=== PATIENT | female | born 1940 | race Caucasian/White ===

== ENCOUNTER 2017-08-19 09:25 | Day surgery (SDC) | payer MEDICARE, BC ==
[~2017-08-19 09:25] MED LIST: LIDOCAINE HCL 1% MPF SOL ONE; PROPOFOL 500 MG/50 ML EMU IV ONE
[2017-08-19] MEDS ORDERED: LIDOCAINE HCL 2% MPF SOL ONE (10:27)
[2017-08-19] MEDS ORDERED: MIDAZOLAM 2 MG/2 ML SOL ONE (10:54)
[2017-08-19] MEDS ORDERED: FENTANYL 100MCG/2ML SOL ONE (10:55)
[2017-08-19] MEDS: BUPIVACAINE HCL 0.5% MPF 10 ML SOL ONE ×2 (11:12→11:15)
[2017-08-19] MEDS ORDERED: BETAMETHASONE 6 MG/ML SUS IM ONE (11:12)
[2017-08-19 12:06] VITALS: RESP 20
[2017-08-19 12:27] VITALS: BP 146/70; PULSE 56; TEMP 975; O2SAT 93
== END 2017-08-19 13:28 | disposition home or self-care (01) | DRG 558 ==
LOC: SURG 09:25
PROVIDERS: ATTEND Orthopaedic Surgery
DX: M65.331 Trigger finger, right middle finger (principal); M17.11 Unilateral primary osteoarthritis, right knee
CPT/HCPCS: J0702; J2250; J3010; A6402; J2001; J2704

== ENCOUNTER 2017-09-02 14:02 | Outpatient (CLI) | payer MEDICARE, BC ==
[2017-08-19 12:27] VITALS: O2SAT 93
== END 2017-09-02 14:03 | disposition home or self-care (01) | DRG 554 ==
LOC: CONVCARE 14:02
PROVIDERS: ATTEND Orthopaedic Surgery
DX: M17.11 Unilateral primary osteoarthritis, right knee (principal); M25.552 Pain in left hip
CPT/HCPCS: 72170